=== PATIENT | male | born 1960 | race Caucasian/White ===

== ENCOUNTER → 2021-08-28 | Outpatient (CLI) | payer BC, OTHER ==
[~2021-08-28] MED LIST: POTASSIUM CHLORIDE; Z.0.ECOTRIN325 MG; Z.0.LASIX40 MG; Z.0.LEXAPRO20 MG; Z.0.LIPITOR20 MG; Z.0.LIPITOR40 MG; Z.0.LISINOPRIL10 MG; Z.0.LOPRESSOR50 MG
== END ==
LOC: RAD 13:43
PROVIDERS: ATTEND Internal Medicine Cardiovascular Disease
DX: Z03.823 Encounter for observation for suspected inserted (injected) foreign body ruled out (principal)
CPT/HCPCS: 71046